=== PATIENT | female | born 1970 | race Caucasian/White ===

== ENCOUNTER 2017-06-30 08:47 | Emergency (ER) | payer OTHER ==
[2017-06-30 08:55] VITALS: BP 112/76
--- NOTE | 2017-06-30 09:05 | ED ---
Abdominal Pain/Female - HPI Summary HPI Summary: 46 female presents with complaints of diffuse abdominal pain, worse in LLQ and mid abdomen area that began Sunday06/24/17. Patient states pain has been becoming more frequent and worsening. States she has not had normal bowel movement in over 1 week. Has had some minimal bowel movements, with last this morning "small alaina" that was painful and without blood. Patient states she is passing gas, but it is also painful. Also complains of fever, on and off, that she has been taking tylenol for, with last being this morning. States highest was 102F last night. Also admits to nausea however has not vomited. Has not taken any other medication other than tylenol, miralax (one time 3 days ago) and drinking prune juice. Tylenol helps with fever however laxatives have not helped her. Denies urinary and genitalia symptoms. Has had abdominal surgery including a tubal ligation, (1) tubal removal and and appendectomy. States diverticulitis does run in her family. PMHx also includes a fib and SVT that she does not take medication for due to it being well controlled and her having hypotension, as her normal. No other complaints. Nothing makes pain better or worse other than not feeling as though she needs to have a bowel movement or pass gas. No chest pain or difficulty breathing. Does not get better or worse with food. - History of Current Complaint Chief Complaint: EDAbdPain Stated Complaint: ABD PAIN Time Seen by Provider: 06/30/17 08:59 Hx Obtained From: Patient Hx Last Menstrual Period: tubal ligation Onset/Duration: Sudden Onset, Lasting Weeks - 1, Still Present, Worse Since Timing: Minutes Severity Initially: Moderate Severity Currently: Severe - when occuring, not at all times Pain Intensity: 10 Pain Scale Used: 0-10 Numeric - when occuring Location: Diffuse, Discrete At: LLQ, Umbilical Radiates: Yes Radiates to: Back Character: Sharp, Cramping Aggravating Factor(s): Other: - bowel movement Alleviating Factor(s): Nothing Associated Signs and Symptoms: Positive: Fever, Constipation, Nausea. Negative : Cough, Blood in Stool, Vaginal Bleeding, Vomiting Allergies/Adverse Reactions: Allergies Allergy/AdvReac Type Severity Reaction Status Date / Time No Known Allergies Allergy Verified 06/30/17 08:47 PMH/Surg Hx/FS Hx/Imm Hx Endocrine/Hematology History: Denies: Hx Diabetes Cardiovascular History: Reports: Hx Atrial Fibrillation, Hx Supraventricular Ventricular Tachycardia Denies: Hx Hypertension Respiratory History: Reports: Other Respiratory Problems/Disorders - spontaneous pneumothorax GI History: Reports: Other GI Disorders - apendectomy Denies: Hx Diverticulosis History: Reports: Other Problems/Disorders - tubal ligation - Surgical History Surgery Procedure, Year, and Place: tubal ligation, 1 tubal removal, appendectomy years ago - Immunization History Immunizations Up to Date: Yes Infectious Disease History: No Infectious Disease History: Denies: Traveled Outside the [place] in Last 30 Days - Family History Known Family History: Positive: None - Social History Substance Use Type: Reports: None Smoking Status (MU): Never Smoked Tobacco Review of Systems Positive: Fever, Chills Cardiovascular: Negative Respiratory: Negative Positive: Abdominal Pain, Nausea, Other - constipation Genitourinary: Negative All Other Systems Reviewed And Are Negative: Yes Physical Exam Triage Information Reviewed: Yes Vital Signs On Initial Exam: Initial Vitals Temp Pulse Resp BP Pulse Ox 99.2 F 83 16 112/76 100 06/30/17 08:48 06/30/17 08:48 06/30/17 08:48 06/30/17 08:48 06/30/17 08:48 Vital Signs Reviewed: Yes Appearance: Positive: Well-Appearing, Well-Nourished, Pain Distress - moderate Skin: Positive: Warm, Skin Color Reflects Adequate Perfusion, Dry. Negative: Cold, Numb, Cyanosis @, Jaundiced, Pale, Erythema @ Head/Face: Positive: Normal Head/Face Inspection Eyes: Positive: Conjunctiva Clear ENT: Positive: Pharynx normal Neck: Positive: Supple, Nontender Respiratory/Lung Sounds: Positive: Clear to Auscultation, Breath Sounds Present. Negative: Rales, Rhonchi, Wheezes Cardiovascular: Positive: Normal, RRR, Pulses are Symmetrical in both Upper and Lower Extremities. Negative: Murmur, Rub Abdomen Description: Positive: No Organomegaly, Soft, Guarding, Other: - exquistely tender LLQ and suprapubic/mid lower abdomen on palpation. negative blevins's sign, scars noted on lower suprapubic and RLQ abdomen.. Negative: Bruit, CVA Tenderness (R), CVA Tenderness (L), Distended, McBurney's Point Tenderness, Peritoneal Signs Bowel Sounds: Positive: Present, Hyperactive Pelvic Exam: Positive: other - deferred Musculoskeletal: Positive: Normal, Strength/ROM Intact Neurological: Positive: Normal, Sensory/Motor Intact, Alert, Oriented to Person Place, Time, NV Bundle Intact Distally, Normal Gait Diagnostics - Vital Signs Vital Signs Temp Pulse Resp BP Pulse Ox 06/30/17 08:48 99.2 F 83 16 112/76 100 - Laboratory Result Diagrams: 06/30/17 09:09 06/30/17 09:09 Lab Statement: Any lab studies that have been ordered have been reviewed, and results considered in the medical decision making process. - CT abd/pelvis CT Interpretation: Positive (See Comments) - THERE IS MILD STRANDING ADJACENT TO THE DISTAL SIGMOID COLON WITH MILD WALL THICKENING NONSPECIFIC ALTHOUGH MOST CONSISTENT WITH DIVERTICULITIS. CT Interpretation Completed By: Radiologist - and myself Re-Evaluation - Re-Evaluation First Eval Re-Evaluation Time: 12:00 Change: Unchanged - still feeling fine, would not like medications, updated on results Abdominal Pain Fem Course/Dx - Course Course Of Treatment: labs, urinalysis and CT abd/pelvis obtained. labs were normal other than elevated CRP. patient did not want medications for pain or nausea while in ED. also deferred the IV contrast. Did take oral for CT. patient was comfortable throughout ED stay. CT showed diverticulitis, will treat with flagyl and bactrim due to patient sensitivity to cipro. also will give mag citrate to help with retained stool. recommended ibuprofen and tylenol for fever and for inflammation. educated on diet. probiotics and fluids. aware of worsening signs and symptoms, patient is coherent and understands. Agrees with plan, all questions answered. Follow up with PCP and GI specialist, return if no improvement of symptoms or worsening sympotoms. no concern for other etiology at this time. - Diagnoses Differential Diagnosis: Positive: Constipation, Diverticulitis, Urinary Tract Infection Provider Diagnoses: Diverticulitis, Constipation Discharge - Discharge Plan Condition: Stable Disposition: HOME Prescriptions: Metronidazole [Flagyl 500 MG TAB] 500 mg PO TID #30 tab Sulfamethox/Trimethoprim DS* [Bactrim DS 800/160 TAB*] 1 tab PO BID #20 tab Patient Education Materials: Diverticulitis (ED), Constipation (ED), High Fiber Diet (ED), Diverticulitis Diet (ED) Referrals: No Primary Care Phys,NOPCP [Primary Care Provider] - [facility] REFERRAL [Outside] Keenan Wilkes MD [Medical Doctor] - Additional Instructions: Take prescribed medication as directed. Take ibuprofen/tylenol for fever and inflammation. Recommend eating a high fiber diet and "diverticulitis diet" attached. Recommend taking probiotic pills daily and eating lithuanian yogurt. Follow up with PCP, GI specialist if symptoms worsen or do not improve and for re-evaluation to ensure improvement. Any new or worsening symptoms please seek medical attention and return to ED, as discussed.
[2017-06-30 09:20] LABS: Hematocrit 39 % (35-47); Hemoglobin 13.3 g/dl (12.0-16.0); Mean Corpuscular HGB Conc 34 g/dl (31-36); Mean Corpuscular Hemoglobin 27 pg (27-31); Mean Corpuscular Volume 79 fL (80-97); Mean Platelet Volume 8 um3 (7.4-10.4); Red Blood Count 4.96 10^6/ul (4.0-5.4); Red Cell Distribution Width 13 % (10.5-15)
[2017-06-30 09:39] LABS: Albumin 4.4 g/dL (3.2-5.2); BUN/Creatinine Ratio 11.8 (8-20); C Reactive Protein 37.03 mg/L (< 5.00); Calcium 9.8 mg/dL (8.6-10.3); EGFR African American 119.3 (>60); EGFR Non-African American 92.7 (>60); Globulin 3.2 g/dL (2-4); Potassium 3.8 mmol/L (3.5-5.0); Total Bilirubin 0.5 mg/dL (0.2-1.0); Total Protein 7.6 g/dL (6.4-8.9)
[2017-06-30 10:02] LABS: Urine Bacteria Absent (Absent); Urine Bilirubin Negative (Negative); Urine Glucose Negative (Negative); Urine Nitrite Negative (Negative)
--- NOTE | 2017-06-30 12:18 | RAD ---
INDICATION: Abdominal pain diffuse and left lower quadrant pain. COMPARISON: There are no prior studies available for comparison. TECHNIQUE: A CT scan of the abdomen and pelvis was performed without intravenous and with oral contrast. Contiguous axial sections were obtained from the lung bases through the symphysis pubis. Images were reconstructed in the coronal and sagittal planes. FINDINGS: The lung bases are clear. No pleural effusion is present. The liver and spleen are within normal limits in size without significant focal abnormality on this noncontrast study. No calcified gallstones are seen. The pancreas appears to be within normal limits in size. The kidneys and adrenal glands are normal in size. No hydronephrosis is seen. There is a small 2 mm calculus in the lower pole of the right kidney which is nonobstructing. The aorta is normal in caliber without significant calcific plaque. No significant enlarged retroperitoneal lymph nodes are seen. The stomach, small and large bowel appear nondistended. There is a moderate amount of retained stool present. The patient is status post appendectomy by history. There is mild descending and sigmoid diverticulosis. In addition there is stranding in the fat adjacent to the distal sigmoid colon and mild wall thickening nonspecific although most consistent with diverticulitis. No abscess is seen. The uterus is anteverted and normal in size. No free intraperitoneal air or fluid is seen. No significant focal osseous abnormality is seen. IMPRESSION: THERE IS MILD STRANDING ADJACENT TO THE DISTAL SIGMOID COLON WITH MILD WALL THICKENING NONSPECIFIC ALTHOUGH MOST CONSISTENT WITH DIVERTICULITIS.
== END 2017-06-30 13:01 | disposition home or self-care (01) ==
LOC: ED 08:47
DX: K57.92 Diverticulitis of intestine, part unspecified, without perforation or abscess without bleeding (principal); K59.00 Constipation, unspecified; I48.91 Unspecified atrial fibrillation; I47.1 Supraventricular tachycardia
CPT/HCPCS: 36415; 74176; 80053; 81003; 81015; 83605; 83690; 84702; 85025; 86140; 99282

== ENCOUNTER 2017-08-11 05:59 | Emergency (ER) | payer OTHER ==
[2017-08-11] MEDS ORDERED: Ibuprofen TAB* 600 MG PO ONE (06:24)
[2017-08-11] MEDS ORDERED: oxyCODONE/Acetamin 5/325 MG* TAB PO ONE (06:24)
[2017-08-11 07:04] VITALS: BP 113/59
--- NOTE | 2017-08-11 07:11 | ED ---
Radha Belcher Abhishek, scribed for Anival Maddox MD on 08/11/17 at 0703 . Back Pain - HPI Summary HPI Summary: This patient is a 46 year old F presenting [facility] accompanied by female with a chief complaint of back injury since one week ago. Pt states she was lifting an object 3 weeks ago. Pt reports of back pain and back spasm. The pain radiates to the tailbone. Pt also reports of urinary incontinence. The patient rates the pain 7/10 in severity. Symptoms aggravated by nothing. Symptoms alleviated by nothing. PMHx (pertinent) includes AFib. - History of Current Complaint Chief Complaint: EDBackInjuryPain Stated Complaint: BACK PAIN Time Seen by Provider: 08/11/17 06:07 Hx Obtained From: Patient Onset/Duration: Lasting Weeks - 1 week ago, Still Present Onset/Duration: Started Weeks Ago - 1 week ago Timing: Constant Back Pain Location: Is Discrete @ - lower back pain, Radiates To - tailbone Severity Initially: Moderate Severity Currently: Moderate Pain Intensity: 7 Pain Scale Used: 0-10 Numeric Aggravating Symptom(s): Nothing Alleviating Symptom(s): Nothing Associated Signs And Symptoms: Positive: Other - back spasms - Allergies/Home Medications Allergies/Adverse Reactions: Allergies Allergy/AdvReac Type Severity Reaction Status Date / Time No Known Allergies Allergy Verified 06/30/17 08:47 PMH/Surg Hx/FS Hx/Imm Hx Endocrine/Hematology History: Denies: Hx Diabetes Cardiovascular History: Reports: Hx Atrial Fibrillation Denies: Hx Hypertension Respiratory History: Reports: Other Respiratory Problems/Disorders - spontaneous pneumothorax GI History: Reports: Other GI Disorders - apendectomy Denies: Hx Diverticulosis History: Reports: Other Problems/Disorders - tubal ligation - Surgical History Surgery Procedure, Year, and Place: tubal ligation, 1 tubal removal, appendectomy years ago Infectious Disease History: No Infectious Disease History: Denies: Traveled Outside the [place] in Last 30 Days - Family History Known Family History: Negative: Cardiac Disease, Diabetes - Social History Alcohol Use: Weekly Alcohol Amount: about five glasses of red wine a week Substance Use Type: Reports: None Smoking Status (MU): Former Smoker Review of Systems Constitutional: Negative Eyes: Negative ENT: Negative Cardiovascular: Negative Respiratory: Negative Gastrointestinal: Negative Positive: incontinence - 1 episode Musculoskeletal: Other - back spasms Positive: Myalgia - back pain (radiating to the tailbone) Skin: Negative Neurological: Negative Psychological: Normal All Other Systems Reviewed And Are Negative: Yes Physical Exam - Summary Physical Exam Summary: VITAL SIGNS: Reviewed. GENERAL: ~Patient is a well-developed and nourished ( FEMALE) who is lying comfortable in the stretcher. Patient is not in any acute respiratory distress. HEAD AND FACE: No signs of trauma. No ecchymosis, hematomas or skull depressions. No sinus tenderness. EYES: PERRLA, EOMI x 2, No injected conjunctiva, no nystagmus. EARS: Hearing grossly intact. Ear canals and tympanic membranes are within normal limits. MOUTH: Oropharynx within normal limits. NECK: Supple, trachea is midline, no adenopathy, no JVD, no carotid bruit, no c- spine tenderness, neck with full ROM. CHEST: Symmetric, no tenderness at palpation LUNGS: Clear to auscultation bilaterally. No wheezing or crackles. CVS: Regular rate and rhythm, S1 and S2 present, no murmurs or gallops appreciated. ABDOMEN: Soft, non-tender. No signs of distention. No rebound no guarding, and no masses palpated. Bowel sounds are normal. EXTREMITIES: FROM in all major joints, no edema, no cyanosis or clubbing. NEURO: Alert and oriented x 3. No acute neurological deficits. Speech is normal and follows commands. Neuro exam intact SKIN: Dry and warm Back Exam: Tenderness lumbar sacral area Musculoskeletal exam: She has bilateral straight leg test is negative Triage Information Reviewed: Yes Vital Signs On Initial Exam: Initial Vitals Temp Pulse Resp BP Pulse Ox 98.3 F 71 18 118/72 100 08/11/17 06:06 08/11/17 06:06 08/11/17 06:06 08/11/17 06:06 08/11/17 06:06 Vital Signs Reviewed: Yes - Temple Coma Scale Coma Scale Total: 15 Diagnostics - Vital Signs Vital Signs Temp Pulse Resp BP Pulse Ox 08/11/17 06:06 98.3 F 71 18 118/72 100 - Laboratory Lab Statement: Any lab studies that have been ordered have been reviewed, and results considered in the medical decision making process. Back Pain Course/Dx - Course Course Of Treatment: The pt presented to the [facility] with a chief complaint of back pain. She reports of one episode of urinary incontinence. The Pt has hx of opiate abuse and she did not want to take the oxycodone. We recommended motrin as needed for pain. We also recommended following up with PCP within 1 to 2 days. the Pt will be discharged home with a dx of lower back pain. - Diagnoses Provider Diagnoses: Lower back pain Discharge - Discharge Plan Condition: Stable Disposition: HOME Patient Education Materials: Back Pain (ED) Referrals: [facility] REFERRAL [Outside] (Follow up with PCP within 1 to 2 days.) No Primary Care Phys,NOPCP [Medical Doctor] - Additional Instructions: We recommend pt take motrin as needed for pain. RETURN TO THE EMERGENCY DEPARTMENT FOR CHANGING OR WORSENING SYMPTOMS. The documentation as recorded by the Radha weiner Abhishek accurately reflects the service I personally performed and the decisions made by , Anival Maddox MD.
== END 2017-08-11 07:02 | disposition home or self-care (01) ==
LOC: ED 05:59
DX: M54.5 Low back pain (principal); M62.830 Muscle spasm of back; Z87.891 Personal history of nicotine dependence
CPT/HCPCS: 99282; A9270-GY